=== PATIENT | male | born 1955 | race Caucasian/White ===

== ENCOUNTER 2023-08-13 00:22 | Day surgery (SDC) | payer MEDICARE, SELFPAY ==
[2023-08-01 11:51] VITALS: BMI 31.4
--- NOTE | 2023-08-11 12:28 | SUR.PREOP ---
Patient called regarding upcoming procedure. Reviewed preop instructions, appointment times, and procedure prep.
[2023-08-13 07:45] VITALS: BP 135/75; PULSE 75; RESP 16; TEMP 36.3; O2SAT 99; BMI 29.9
[2023-08-13] MEDS: LACTATED RINGERS 1,000 ML 150 ML IV CONT (08:00)
--- NOTE | 2023-08-13 08:03 | P.PNAN_ITS ---
Anes - Initial Pre Proc Eval Procedure: Operation Date: 08/13/23 09:00 Proposed Procedures p Screening Colonoscopy - Dale Armendariz MD Date/Time: 08/13/23 08:03 Surgeon: Dale Armendariz MD Pre Op Diagnosis: neoplasm screening Patient Data Age: 67 Gender: M Height: 1.8 m Weight: 97.5 kg Last Vital Signs Temp 97.3 F L 08/13/23 07:45 Pulse 75 08/13/23 07:45 Resp 16 08/13/23 07:45 BP 135/75 08/13/23 07:45 Pulse Ox 99 08/13/23 07:45 O2 Del Method Room Air 08/13/23 07:45 Allergies Allergy/AdvReac Type Severity Reaction Status Date / Time No Known Allergies Allergy Verified 08/13/23 07:51 Home Medications Medication Instructions Recorded Confirmed Type Adults Multivitamin 1 cap PO DAILY 08/01/23 08/13/23 History cholecalciferol (vitamin D3) 25 25 mcg PO DAILY 08/01/23 08/13/23 History mcg (1,000 unit) capsule (Vitamin D3) melatonin 1 mg tablet 1 mg PO HS PRN Insomnia 08/01/23 08/13/23 History naproxen sodium 220 mg capsule 220 mg PO BID PRN Pain 08/01/23 08/13/23 History (Aleve) Patient hx anesthesia problems: none Family hx anesthesia problems: none Results Review: All pre-operative results and documents have been reviewed as part of the pre- operative evaluation. FOR[facility]LY [facility], [facility] Past Medical History Medical History Tobacco use Family History Family History Mother Hypertension Thyroid disorder Social History Social History (Updated 05/20/23 @ 12:09 by Minnie Rush PA-C) Years smoked: 50 Smoking status: Current every day smoker Tobacco type: cigarettes Second hand tobacco smoke exposure: No Alcohol intake: current Alcohol use details: a couple times a week, beer Substance use: current Substance use type: marijuana Other substance usage details: OCC. FOR PAIN AND ANXIETY-VAPES Do You Feel Safe in your Home?: Yes Lack of Transportation: No Lack of Food: Never True Current Housing: I Have Housing Concerned About Future Housing: No Difficulty Paying Gas/Electric Bills: No Difficulty Paying for Meds: No Education: High School Diploma/GED Difficulty w/ Childcare or Family Care: No Living arrangements: with family Occupation/Education: retired Gender identity (if verbalized by the patient): Male Spiritual care concerns: No Anes - Eval Final PreProcedure Day of Procedure 08/13/23 08:03 Patient weight: normal Heart: regular rate and rhythm Lungs: clear to auscultation Airway: Mallampati scale class II Neurological: alert and oriented Last oral intake: >/= 8 hours ASA classification: II Emergent: no Anesthetic plan: proceed Anesthesia type and monitoring: general GIVS and standard monitoring Results Review: All pre-operative results and documents have been reviewed as part of the pre- operative evaluation. Informed Consent: The patient's anesthetic plan and its attendant risks and benefits were discussed with the patient/family/POA. Questions were solicited and answers provided to the satisfaction of the patient/family/POA.
--- NOTE | 2023-08-13 08:30 | PM.HPGS ---
History of Present Illness History of Present Illness Consent: Risks, benefits, and alternatives have been discussed and questions answered. Patient agrees to proceed with procedure. Chief complaint: neoplasm screening Narrative: Loyd Anderson is a 67 year old male with colon polyp ~ 5 years ago Review of Systems Review of Systems: All systems reviewed & are unremarkable except as noted in HPI and below PMFSH Past Medical History Medical History Colon polyp Tobacco use Family History Family History Mother Hypertension Thyroid disorder Social History Social History (Updated 05/20/23 @ 12:09 by Minnie Rush PA-C) Years smoked: 50 Smoking status: Current every day smoker Tobacco type: cigarettes Second hand tobacco smoke exposure: No Alcohol intake: current Alcohol use details: a couple times a week, beer Substance use: current Substance use type: marijuana Other substance usage details: OCC. FOR PAIN AND ANXIETY-VAPES Do You Feel Safe in your Home?: Yes Lack of Transportation: No Lack of Food: Never True Current Housing: I Have Housing Concerned About Future Housing: No Difficulty Paying Gas/Electric Bills: No Difficulty Paying for Meds: No Education: High School Diploma/GED Difficulty w/ Childcare or Family Care: No Living arrangements: with family Occupation/Education: retired Gender identity (if verbalized by the patient): Male Spiritual care concerns: No Meds Home Medications and Allergies Home Medications Medication Instructions Recorded Confirmed Type Adults Multivitamin 1 cap PO DAILY 08/01/23 08/13/23 History cholecalciferol (vitamin D3) 25 25 mcg PO DAILY 08/01/23 08/13/23 History mcg (1,000 unit) capsule (Vitamin D3) melatonin 1 mg tablet 1 mg PO HS PRN Insomnia 08/01/23 08/13/23 History naproxen sodium 220 mg capsule 220 mg PO BID PRN Pain 08/01/23 08/13/23 History (Aleve) Allergies Allergy/AdvReac Type Severity Reaction Status Date / Time No Known Allergies Allergy Verified 08/13/23 07:51 Vital Signs Vital Signs - 24 hr 08/13/23 07:45 Temperature 97.3 F L Pulse Rate 75 Respiratory Rate 16 Blood Pressure 135/75 Pulse Oximetry 99 Oxygen Delivery Room Air Exam Const: General: comfortable and no acute distress HENMT: Face/Nose/Sinus: Normal nares present Eyes: General: appearance normal, both eyes and all related structures Neck: Neck: no JVD Resp: Auscultation: clear to auscultation bilaterally Cardio: Rate: regular rate Rhythm: regular rhythm GI: Inspection: non-distended GI Palp: Yes Soft to palpation Skin: General skin exam: normal color Neuro: General: gait normal Speech: normal speech Extrem: General: normal to inspection Psych: Mental Status: mental status grossly normal Assessment and Plan Assessment and plan (1) Colon polyp: Code(s): K63.5 - Polyp of colon Status: Acute Assessment and Plan: colonoscopy
[2023-08-13 08:46] VITALS: BP 103/75; PULSE 75; RESP 12; O2SAT 96
[2023-08-13 08:56] VITALS: BP 119/69; PULSE 68; RESP 20; O2SAT 98
[2023-08-13 09:10] VITALS: BP 123/74; PULSE 69; RESP 20; O2SAT 95
== END 2023-08-13 09:15 | disposition home or self-care (01) ==
PROVIDERS: PCP Family Medicine; Visit Provider Internal Medicine Gastroenterology
PROC: 0DJD8ZZ Inspection of Lower Intestinal Tract, Via Natural or Artificial Opening Endoscopic (ICD-10-PCS; CPT 45378; principal; 2023-08-13 09:00)
DX: Z12.11 Encounter for screening for malignant neoplasm of colon (principal); D12.2 Benign neoplasm of ascending colon; K57.30 Diverticulosis of large intestine without perforation or abscess without bleeding; K64.8 Other hemorrhoids; F17.210 Nicotine dependence, cigarettes, uncomplicated; F12.90 Cannabis use, unspecified, uncomplicated
CPT/HCPCS: 45380; 88305; J2704; J7120